=== PATIENT | female | born 1945 | race Caucasian/White ===

== ENCOUNTER → 2017-09-01 12:11 | Outpatient (CLI) | payer MEDICARE, SELFPAY ==
--- NOTE | 2017-09-01 | DI.MG.S_ITS ---
BILATERAL DIGITAL SCREENING MAMMOGRAM 3D/2D WITH CAD: 09/01/2017 CLINICAL: Routine screening. Family history of breast cancer. Comparison is made to exams dated: 05/20/2011 mammogram, 05/08/2011 mammogram, and 02/03/2010 mammogram - [facility]. The tissue of both breasts is predominantly fatty. Current study was also evaluated with a Computer Aided Detection (CAD) system. There is a mass in the left breast at 8 o'clock in the retroareolar region. There also is a mass in the left breast central to the nipple anterior depth. No other significant masses, calcifications, or other findings are seen in either breast. IMPRESSION: INCOMPLETE: NEEDS ADDITIONAL IMAGING EVALUATION The mass in the left breast at 8 o'clock in the retroareolar region is indeterminate. Additional views with possible ultrasound are recommended. The mass in the left breast central to the nipple anterior depth is indeterminate. Additional views with possible ultrasound are recommended. This exam was interpreted at Station ID: [id number]. NOTE: For mammograms, a report in lay terms will be sent to the patient. Approximately 15% of breast malignancies will not be visualized mammographically. In the management of a palpable breast mass, a negative mammogram must not discourage biopsy of a clinically suspicious lesion. Electronically Signed By: Abdelrahman ramsey/leona:09/01/2017 15:39:38 letter sent: Additional Imaging Needed ACR BI-RADS Category 0: Incomplete 3340F
== END ==
PROVIDERS: Visit Provider Nurse Practitioner Family
DX: Z12.31 Encounter for screening mammogram for malignant neoplasm of breast (principal); Z80.3 Family history of malignant neoplasm of breast
CPT/HCPCS: 77063; 77067

== ENCOUNTER → 2017-09-20 09:48 | Outpatient (CLI) | payer MEDICARE, SELFPAY ==
--- NOTE | 2017-09-20 | DI.US.S_ITS ---
ULTRASOUND OF LEFT BREAST: 09/20/2017 CLINICAL: Patient returns for additional imaging over a suspected mass in the left breast. Comparison is made to exams dated: 09/20/2017 mammogram, 09/01/2017 mammogram - [facility], and 05/20/2011 mammogram - [facility]. Color flow ultrasound of the left breast was performed. Bhakta scale images of the real-time examination were reviewed. There is a 0.5 cm x 0.4 cm x 0.6 cm round mass with a circumscribed margin in the left breast at 8 o'clock middle depth 2 cm from the nipple. This round mass is hypoechoic with posterior acoustic shadowing. There also is a 0.5 cm x 0.5 cm x 0.4 cm oval mass with a circumscribed margin in the left breast at 6 o'clock in the retroareolar region. This oval mass is hypoechoic. IMPRESSION: PROBABLY BENIGN - FOLLOW-UP RECOMMENDED The 0.5 cm x 0.4 cm x 0.6 cm round mass in the left breast at 8 o'clock middle depth is consistent with a complicated cyst and is probably benign. Follow-up mammogram and ultrasound in 6 months is recommended. The 0.5 cm x 0.5 cm x 0.4 cm oval mass in the left breast at 6 o'clock in the retroareolar region is probably benign. Follow-up mammogram and ultrasound in 6 months is recommended. A follow-up left mammogram and an ultrasound in 6 months is recommended to demonstrate stability. This exam was interpreted at Station ID: [id number]. Electronically Signed By: Abdelrahman ramsey/leona:09/20/2017 17:35:23 letter sent: Followup Recommended Ultrasound BI-RADS: 3 Probably benign
--- NOTE | 2017-09-20 | DI.MG.S_ITS ---
UNILATERAL LEFT DIGITAL DIAGNOSTIC MAMMOGRAM 3D/2D: 09/20/2017 CLINICAL: Additional evaluation requested from prior study. Family history of breast cancer. Comparison is made to exams dated: 09/01/2017 mammogram - [facility], 05/20/2011 mammogram, and 05/08/2011 mammogram - [facility]. The tissue of the left breast is predominantly fatty. There is a 5 mm oval low density mass with a circumscribed margin in the left breast at 8 o'clock in the retroareolar region. There also is a 6 mm oval low density mass with a circumscribed margin in the left breast central to the nipple anterior depth. No other significant masses or calcifications are seen in the breast. IMPRESSION: INCOMPLETE: NEEDS ADDITIONAL IMAGING EVALUATION The 5 mm oval low density mass in the left breast at 8 o'clock in the retroareolar region is indeterminate. An ultrasound is recommended. The 6 mm oval low density mass in the left breast central to the nipple anterior depth is indeterminate. An ultrasound is recommended. This exam was interpreted at Station ID: [id number]. NOTE: For mammograms, a report in lay terms will be sent to the patient. Approximately 15% of breast malignancies will not be visualized mammographically. In the management of a palpable breast mass, a negative mammogram must not discourage biopsy of a clinically suspicious lesion. Electronically Signed By: Abdelrahman ramsey/leona:09/20/2017 15:45:31 ACR BI-RADS Category 0: Incomplete 3340F
== END ==
PROVIDERS: Family Provider Family Medicine; PCP Nurse Practitioner Family; Visit Provider Nurse Practitioner Family
DX: R92.8 Other abnormal and inconclusive findings on diagnostic imaging of breast (principal); N63.23 Unspecified lump in the left breast, lower outer quadrant
CPT/HCPCS: 76642; 77065; G0279

== ENCOUNTER → 2018-04-04 09:57 | Outpatient (CLI) | payer MEDICARE, SELFPAY ==
--- NOTE | 2018-04-04 | DI.US.S_ITS ---
ULTRASOUND OF LEFT BREAST: 04/04/2018 CLINICAL: 6 month follow-up of cysts. Comparison is made to exams dated: 04/04/2018 mammogram, 09/20/2017 ultrasound, 09/20/2017 mammogram, and 09/01/2017 mammogram - [facility]. Color flow ultrasound of the left breast was performed. Bhakta scale images of the real-time examination were reviewed. There is 0.4 cm x 0.3 cm x 0.4 cm oval mass with a circumscribed margin in the left breast at 6 o'clock in the retroareolar region. This mass prevously measured 6mm in size. This oval mass is hypoechoic. This abnormality is decreased in size and less prominent. The previously described 0.6 cm round mass with a circumscribed margin in the left breast at 8 o'clock middle depth 2 cm from the nipple is no longer seen and is compatible with a benign process. IMPRESSION: PROBABLY BENIGN The 0.4 cm x 0.3 cm x 0.4 cm oval mass in the left breast at 6 o'clock in the retroareolar region most likely is complicated cysts and is probably benign. Interval resolution of the 8 o'clock mass/cyst in the left breast. A follow-up mammogram and an ultrasound in 6 months is recommended to demonstrate stability versus resolution of the 6 o'clock finding. Patient is due for annual screening mammogram of the right breast at that time. This exam was interpreted at Station ID: [id number]. Electronically Signed By: Jaime reeves/:04/04/2018 11:57:28 letter sent: Followup Recommended Ultrasound BI-RADS: 3 Probably benign
--- NOTE | 2018-04-04 | DI.MG.S_ITS ---
UNILATERAL LEFT DIGITAL DIAGNOSTIC MAMMOGRAM 3D/2D SHORT-TERM FOLLOW-UP: 04/04/2018 CLINICAL: Patient returns for a 6 month follow up of the left breast. Comparison is made to exams dated: 09/20/2017 ultrasound, 09/20/2017 mammogram, and 09/01/2017 mammogram - [facility]. The tissue of left breast is predominantly fatty. There is a 6 mm oval low density mass with a circumscribed margin in the left breast central to the nipple anterior depth and is not significantly changed. This corresponds to the 6 o'clock mass seen on prior sonogram. The previously described 5 mm oval mass with a circumscribed margin in the left breast at 8 o'clock anterior depth is no longer seen and is benign. No other new significant masses or calcifications are seen in the breast. IMPRESSION: INCOMPLETE: NEEDS ADDITIONAL IMAGING EVALUATION The stable 6 mm oval low density mass in the left breast central to the nipple anterior depth is indeterminate. Previously seen 8 o'clock mass has resolved and is compatible with benign process. An ultrasound is recommended to further evaluate persistent 6mm mass and is scheduled to immediately follow this study. This exam was interpreted at Station ID: [id number]. NOTE: For mammograms, a report in lay terms will be sent to the patient. Approximately 15% of breast malignancies will not be visualized mammographically. In the management of a palpable breast mass, a negative mammogram must not discourage biopsy of a clinically suspicious lesion. Electronically Signed By: Jaime Bain M.D. aty/:04/04/2018 11:48:02 ACR BI-RADS Category 0: Incomplete 3340F
== END ==
PROVIDERS: PCP Nurse Practitioner Family; Visit Provider Nurse Practitioner Family
DX: R92.8 Other abnormal and inconclusive findings on diagnostic imaging of breast (principal); N63.20 Unspecified lump in the left breast, unspecified quadrant
CPT/HCPCS: 76642; 77065; G0279

== ENCOUNTER → 2018-09-27 12:14 | Outpatient (CLI) | payer MEDICARE, SELFPAY ==
--- NOTE | 2018-09-27 | DI.MG.S_ITS ---
BILATERAL DIGITAL DIAGNOSTIC MAMMOGRAM 3D/2D SHORT-TERM FOLLOW-UP: 09/27/2018 CLINICAL: Patient returns for a 6 month follow up of the left breast. Due for bilateral imaging. Comparison is made to exams dated: 04/04/2018 mammogram, 09/20/2017 mammogram, 09/01/2017 mammogram, and 04/04/2018 [facility]. The tissue of both breasts is predominantly fatty. There is a stable 4 mm oval low density mass with a circumscribed margin in the left breast central to the nipple anterior depth. There also is a 6 mm oval asymmetry with a circumscribed margin in the left breast middle depth superior region seen on the mediolateral view only. This is more prominent than on prior studies. The benign 5 mm oval mass with a circumscribed margin in the left breast at 8 o'clock anterior depth is no longer seen. No other significant masses, calcifications, or other findings are seen in either breast. IMPRESSION: INCOMPLETE: NEEDS ADDITIONAL IMAGING EVALUATION The 4mm oval low density mass in the left breast central to the nipple anterior depth is stable on mammogram. An ultrasound is recommended to reasses internal composition. The 6 mm oval asymmetry in the left breast middle depth superior region seen on the mediolateral view only is indeterminate. This has been present on prior studies but is now more prominent. An ultrasound is recommended. Ultrasound was performed immediately following this exam. This exam was interpreted at Station ID: [id number]. NOTE: For mammograms, a report in lay terms will be sent to the patient. Approximately 15% of breast malignancies will not be visualized mammographically. In the management of a palpable breast mass, a negative mammogram must not discourage biopsy of a clinically suspicious lesion. Electronically Signed By: Kylie salas/:09/27/2018 14:31:50 ACR BI-RADS Category 0: Incomplete 3340F
--- NOTE | 2018-09-27 | DI.US.S_ITS ---
LIMITED ULTRASOUND OF LEFT BREAST: 09/27/2018 CLINICAL: 6 month follow-up. Comparison is made to exams dated: 09/27/2018 mammogram, 04/04/2018 ultrasound, 04/04/2018 mammogram, 09/20/2017 ultrasound, 09/20/2017 mammogram, and 09/01/2017 mammogram - [facility]. Color flow and real-time ultrasound of the left breast 6 o'clock, 8 o'clock, and 10-11 o'clock regions were performed. Bhakta scale images of the real-time examination were reviewed. There is 0.3 cm x 0.3 cm x 0.2 cm cyst in the left breast at 11 o'clock anterior depth. This cyst is hypoechoic but of mixed echogenicity. This correlates smaller than estimated on mammography. Color flow imaging demonstrates that there is no vascularity present. It is unlikely that this corresponds to the stable mammographic finding. There also is a benign 0.5 cm x 0.4 cm x 0.4 cm cyst in the left breast at 6 o'clock in the retroareolar region. Color flow imaging demonstrates that there is no vascularity present. This is unchanged from previous ultrasound. No abnormalities in the 8 o'clock position. IMPRESSION: PROBABLY BENIGN The 0.3 cm x 0.3 cm x 0.2 cm cyst in the left breast at 11 o'clock anterior depth is consistent with complicated cysts and is probably benign. A follow-up in 6 months is recommended. The 0.5 cm x 0.4 cm x 0.4 cm cyst in the left breast at 6 o'clock in the retroareolar region is consistent with a complicated cyst, is stable and is benign. A follow-up left ultrasound in 6 months is recommended to demonstrate stability of the 11 o'clock lesion. Screening mammography in one year recommended. Findings and recommendations were conveyed to the patient at time of exam. This exam was interpreted at Station ID: [id number]. Electronically Signed By: Kylie salas/:09/27/2018 14:37:26 letter sent: Followup Recommended Ultrasound BI-RADS: 3 Probably benign
== END ==
PROVIDERS: PCP Nurse Practitioner Family; Visit Provider Nurse Practitioner Family
DX: R92.8 Other abnormal and inconclusive findings on diagnostic imaging of breast (principal); N60.02 Solitary cyst of left breast
CPT/HCPCS: 76642; 77066; G0279

== ENCOUNTER → 2020-09-19 13:16 | Outpatient (CLI) | payer MEDICARE, SELFPAY ==
--- NOTE | 2020-09-19 13:21 | DI.US.S_ITS ---
ULTRASOUND OF LEFT BREAST: 09/19/2020 CLINICAL: Late 6 month follow-up of cyst. Comparison is made to exams dated: 09/19/2020 mammogram, 09/27/2018 ultrasound, 09/27/2018 mammogram, 04/04/2018 ultrasound, 04/04/2018 mammogram, and 09/20/2017 [facility]. Color flow and real-time ultrasound of the left breast were performed. Bhakta scale images of the real-time examination were reviewed. Th previously described hypoechoic left breast mass has increased in size and is now more hypoechoic with posterior shadowing. The mass currently measures up to 0.8 cm as compared with 0.3 cm previously. Color flow imaging demonstrates that there is no definite vascularity present. IMPRESSION: SUSPICIOUS OF MALIGNANCY Increased size of left breast mass seen previously. Ultrasound guided biopsy recommended. This exam was interpreted at Station ID: [id number]. Electronically Signed By: Britton Varela M.D. jr/:09/20/2020 10:55:56 letter sent: Biopsy Required Ultrasound BI-RADS: 4 Suspicious for malignancy
--- NOTE | 2020-09-19 13:21 | DI.MG.S_ITS ---
BILATERAL DIGITAL DIAGNOSTIC MAMMOGRAM 3D/2D: 09/19/2020 CLINICAL: Short term follow up of the left breast, due for bilateral imaging. Comparison is made to exams dated: 09/27/2018 ultrasound, 09/27/2018 mammogram, 04/04/2018 ultrasound, and 04/04/2018 mammogram - [facility]. The tissue of both breasts is predominantly fatty. There is a 0.5 cm x 0.4 cm x 0.4 cm cyst in the left breast at 6 o'clock in the retroareolar region. This is not significantly changed. There also is a 0.3 cm x 0.3 cm x 0.2 cm cyst in the left breast at 12 o'clock anterior depth. This is not significantly changed. No other significant masses, calcifications, or other findings are seen in either breast. IMPRESSION: INCOMPLETE: NEEDS ADDITIONAL IMAGING EVALUATION The previously described asymmetry at at 11-12 o'clock anterior depth has increased in size, with imaging features suggestive of cyst on prior ultrasound although etiology is not definitive. The 0.5 cm x 0.4 cm x 0.4 cm cyst in the left breast at 6 o'clock in the retroareolar region is stable. An ultrasound is recommended and is being performed to fruther evaluate. This exam was interpreted at Station ID: [id number]. NOTE: For mammograms, a report in lay terms will be sent to the patient. Approximately 15% of breast malignancies will not be visualized mammographically. In the management of a palpable breast mass, a negative mammogram must not discourage biopsy of a clinically suspicious lesion. Electronically Signed By: Britton Varela M.D. jr/:09/19/2020 14:18:44 Entry: - 09/24/2020 08:01:57 ACR BI-RADS Category 0: Incomplete 3340F
== END ==
PROVIDERS: PCP Specialist; Referring Provider Specialist; Visit Provider Specialist
DX: R92.8 Other abnormal and inconclusive findings on diagnostic imaging of breast (principal); N63.20 Unspecified lump in the left breast, unspecified quadrant; N60.02 Solitary cyst of left breast
CPT/HCPCS: 76642; 77066; G0279

== ENCOUNTER → 2020-10-14 07:37 | Outpatient (CLI) | payer MEDICARE, SELFPAY ==
--- NOTE | 2020-10-14 | PATH_ITS ---
[facility] Accession Number: [id number] . 01 Material submitted: . breast - LEFT BREAST 11:00 3CM FN . 01 Clinical history: . UNSPECIFIED LUMP IN UNSPECIFIED BREAST- LEFT . 01 Diagnosis: A. Left Breast, 11 o'clock Mass, 3 cm From The Nipple, Biopsy: Dense stromal fibrosis and portions of cyst wall. Background breast parenchyma with microcystic duct dilatation, associated hyalinization, apocrine metaplasia, and focal usual ductal hyperplasia. Focally obliterated duct with evidence of rupture and associated giant cell reaction. Microcalcifications are present. Negative for atypia, carcinoma in situ, and malignancy. . COMMENT: Clinical and radiographic correlation is necessary. Deeper levels are examined. MRV 10/21/2020 0942 Local . 01 Electronically signed: . Huong Vincent MD, Pathologist NPI- [id number] . 01 Gross description: . The specimen is received in formalin, labeled left breast 11 o'clock, 3 cm from nipple and consists of multiple ho-yellow fragments of fibroadipose tissue measuring 2.0 x 1.5 x 0.3 cm in aggregate. The specimen is entirely submitted in cassette A1. . Formalin fixation time: Approximately 28 hours. ([id number]) /MRV 10/15/2020 1024 Local . 01 Pathologist provided ICD-10: N63.0 . 01 CPT . 836519 Specimen Comment: A duplicate report has been generated due to demographic updates. Performed at: 01 [facility] [address] [place] [address] [address] [facility] [place][note 2], [place], [place] [id number] MD Zhen Fung MD Phone: [phone]
--- NOTE | 2020-10-14 | DI.MG.S_ITS ---
UNILATERAL LEFT DIGITAL DIAGNOSTIC MAMMOGRAM 3D/2D POST-NEEDLE BIOPSY: 10/14/2020 CLINICAL: Post clip placement for breast lump. No prior exams were available for comparison. The tissue of left breast is predominantly fatty. There is a marker clip in the appropriate position in the left breast at 11 o'clock middle depth. This marker clip placement is at the biopsy site. IMPRESSION: POST PROCEDURE MAMMOGRAM FOR MARKER PLACEMENT There was a successful marker clip placement in the left breast 11 o'clock. This exam was interpreted at Station ID: [id number]. NOTE: For mammograms, a report in lay terms will be sent to the patient. Approximately 15% of breast malignancies will not be visualized mammographically. In the management of a palpable breast mass, a negative mammogram must not discourage biopsy of a clinically suspicious lesion. Electronically Signed By: Rony carrizales/:10/14/2020 15:26:42 ACR BI-RADS Category Post-procedure mammogram for marker placement
--- NOTE | 2020-10-14 | DI.US.S_ITS ---
ULTRASOUND GUIDED BIOPSY LEFT BREAST USING VACUUM DEVICE WITH MARKING DEVICE INSERTED: 10/14/2020 CLINICAL: Left breast mass. PATIENT CONSENT: Risks (minor bleeding, infection, vasovagal reaction and repeat procedure), benefits and alternatives were explained to the patient and written informed consent was obtained. Correlation is made to exams dated: 10/14/2020 mammogram, 09/19/2020 ultrasound, 09/19/2020 mammogram, 09/27/2018 ultrasound, 09/27/2018 mammogram, and 04/04/2018 [facility]. An ultrasound guided biopsy using real-time ultrasound was performed for the lesion located in the left breast at 11 o'clock middle depth, 3 cm from nipple. The skin was prepped in the usual manner. Local anesthetic was administered to the access site. A small incision was made in the breast. The abnormality was approached from the lateral aspect. A biopsy needle was placed adjacent to the abnormality under ultrasound guidance. Once the needle was documented to be in the correct location, six specimens were obtained using the Mammotome biopsy system. The patient received additional local anesthetic during the procedure. A clip was inserted into the biopsy cavity. The specimens were sent to the laboratory for pathological analysis. IMPRESSION: ULTRASOUND GUIDED BIOPSY BENIGN Ultrasound guided biopsy of the lesion in the left breast at 11 o'clock middle depth was successful. Pathology indicates benign dense stromal fibrosis and portions of cyst wall. Background breast parenchyma with microcystic duct dilatation, associated hyalinization, apocrine metaplasia, and focal usual ductal hyperplasia. Focally obliterated duct with evidence of rupture and associated giant cell reaction. Microcalcifications are present. Negative for atypia, carcinoma in situ, and malignancy. Pathology results are concordant with imaging findings. Return to annual mammogram screening schedule is recommended. This exam was interpreted at Station ID: [id number]. Rony carrizales,ar/:10/22/2020 12:35:05
== END ==
PROVIDERS: PCP Specialist; Referring Provider Specialist; Visit Provider Specialist
DX: N60.32 Fibrosclerosis of left breast; N60.82 Other benign mammary dysplasias of left breast; N60.02 Solitary cyst of left breast
CPT/HCPCS: 19083; 77065

== ENCOUNTER → 2021-09-23 10:07 | Outpatient (CLI) | payer MEDICARE, SELFPAY ==
--- NOTE | 2021-09-23 | DI.MG.S_ITS ---
BILATERAL DIGITAL SCREENING MAMMOGRAM 3D/2D WITH CAD: 09/23/2021 CLINICAL: Routine screening. Family history of breast cancer. Comparison is made to exams dated: 10/14/2020 mammogram, 09/19/2020 ultrasound, 09/19/2020 mammogram, and 09/27/2018 mammogram - [facility]. There are scattered fibroglandular elements in both breasts. Current study was also evaluated with a Computer Aided Detection (CAD) system. There are benign calcifications in both breasts. There also is a biopsy clip in the left breast. No significant masses, calcifications, or other findings are seen in either breast. There has been no significant interval change. IMPRESSION: BENIGN There is no mammographic evidence of malignancy. A 1 year screening mammogram is recommended. Based on the Tyrer Cuzick model (a risk assessment model) the patient's lifetime risk is 3.6% and her 10 year risk is 0.0%. According to the ACR, ACS, and NCCN guidelines, an annual breast MRI exam along with mammogram is recommended if the patient's lifetime risk is 20% or greater. This exam was interpreted at Station ID: [id number]. NOTE: For mammograms, a report in lay terms will be sent to the patient. Approximately 15% of breast malignancies will not be visualized mammographically. In the management of a palpable breast mass, a negative mammogram must not discourage biopsy of a clinically suspicious lesion. Electronically Signed By: Alton lugo/leona:09/23/2021 11:05:48 letter sent: Normal Exam ACR BI-RADS Category 2: Benign Finding(s) 3342F
== END ==
PROVIDERS: PCP Specialist; Referring Provider Specialist; Visit Provider Specialist
DX: Z12.31 Encounter for screening mammogram for malignant neoplasm of breast (principal); Z80.3 Family history of malignant neoplasm of breast
CPT/HCPCS: 77063; 77067